=== PATIENT | female | born 1980 | race Hispanic/Latino ===

== ENCOUNTER 2018-04-04 17:46 | Emergency (ER) | payer OTHER | END 2018-04-04 18:54 | disposition home or self-care (01) | LOC: EDH 17:46 | DX: S90.111A Contusion of right great toe without damage to nail, initial encounter (principal); G89.29 Other chronic pain; M79.671 Pain in right foot; M25.561 Pain in right knee; Z72.0 Tobacco use; Z87.442 Personal history of urinary calculi; Z88.1 Allergy status to other antibiotic agents; W54.8XXA Other contact with dog, initial encounter; Y93.89 Activity, other specified; Y92.89 Other specified places as the place of occurrence of the external cause; Y99.8 Other external cause status | CPT/HCPCS: 99281 ==